=== PATIENT | female | born 1985 | race Caucasian/White ===

== ENCOUNTER → 2021-01-28 15:47 | Outpatient (CLI) | payer OTHER, SELFPAY ==
--- NOTE | 2021-01-28 15:49 | DI.ECHO.S_ITS ---
[place] [facility]---------+ [facility] +---------+ : : [address] : [address] : : : : [id number] : : : : Phone: [phone]+ Echocardiogram Report + + :Name: TOM CORMIER Study Date: 01/28/2021 Height: 60 in : :[facility] ReadingLocation: Weight: 145 lb : : Gender: Female BSA: 1.6 m2 : :: 1985 Age: 35 yrs BP: 125/80 mmHg: :Reason For Study: MITRAL VALVE DISORDERS : :Ordering Physician: JULIUS, : :KEYANA Performed By: Lucila Renner : :Referring: KEYANA HILLS : + + Interpretation Summary 1) Normal left ventricular thickness, size, wall motion, diastolic function, and systolic function (EF 60-65%). 2) Normal right ventricular size and function. 3) No significant valvular abnormalities. 4) Compared to the Echo done 06/30/2017, the small echogenic mobile structure is noted on the atrial side of the posterior mitral valve leaflet is not seen on this study. Procedure: A two-dimensional transthoracic echocardiogram with color flow and Doppler was performed. The study quality was technically adequate. Comparison is made with the echocardiogram of 06/30/2017. The patient was in sinus rhythm with heart rates between 78-93 bpm during the exam. Left Ventricle: The left ventricle is normal in size and wall thickness. The ejection fraction is estimated to be 60-65%. Left ventricular systolic function appears normal without focal wall motion abnormalities. Right Ventricle: The right ventricle is normal in size and function. Atria: The left atrial size is normal. Right atrial size is normal. There is no Doppler evidence for an interatrial shunt. Mitral Valve: The mitral valve is normal in structure and function. There is trace mitral regurgitation. Aortic Valve: The aortic valve is trileaflet. The aortic valve opens well. There is no aortic valve stenosis. No aortic regurgitation is present. Tricuspid Valve: The tricuspid valve is normal in structure and function. No tricuspid regurgitation. Pulmonary artery pressures cannot be estimated because of the lack of a measurable TR jet velocity but the IVC suggests a CVP of around 3 mmHg. Pulmonic Valve: The pulmonic valve leaflets are thin and pliable; valve motion is normal. There is no pulmonic valvular regurgitation. Great Vessels: The aortic root is normal size. The dimensions of the ascending aorta are normal. The IVC is of normal diameter and collapses greater than 50% with a sniff. This suggests a low right atrial pressure of 3 mm Hg. Pericardium/ Pleura There is no pericardial effusion. There is no pleural effusion. MMode/2D Measurements & Calculations LVIDd: 4.4 cm LVOT diam: 1.9 cm LVIDs: 2.9 cm Ao root diam: 2.5 cm FS: 35.1 % asc Aorta Diam: 2.5 cm IVSd: 0.41 cm Ao Arch Diam (Prox Trans): 2.0 cm LVPWd: 0.58 cm LV garrison. diameter/BSA (cm/m^2): 2.7 LV sys. diameter/BSA (cm/m^2): 1.8 LA A2 area: 15.3 cm2 RA long axis: 4.1 cm LA A4 area: 16.3 cm2 RA area: 12.0 cm2 LA length (vol): 4.9 cm RA vol: 29.8 ml LA vol: 43.5 ml RA : 18.3 ml/m2 LA vol index: 26.7 ml/m2 IVC diam: 0.99 cm RVD1 (basal): 3.3 cm TAPSE: 1.7 cm Doppler Measurements & Calculations Ao V2 max: 143.9 cm/sec LVOT Max Perry: 102.2 cm/sec Ao V2 mean: 100.3 cm/sec LV V1 max P.2 mmHg Ao max P.3 mmHg LV V1 VTI: 19.0 cm Ao mean P.5 mmHg JG(I,D): 2.0 cm2 Ao V2 VTI: 26.3 cm JG(V,D): 2.0 cm2 sev ratio: 0.72 JG indexed to BSA (cm^2/m^2): 1.3 MV E max perry: 99.7 cm/sec PA V2 max: 139.8 cm/sec MV A max perry: 55.4 cm/sec PA V2 mean: 93.9 cm/sec MV E/A: 1.8 PA mean P.9 mmHg Med Peak E' Perry: 11.3 cm/sec PA pr(Accel): 39.6 mmHg E/E' med: 8.8 Lat Peak E' Perry: 16.1 cm/sec E/E' lat: 6.2 E/e' average: 7.5 MV dec time: 0.18 sec SVLVOT): 53.7 ml Reading Physician:08:43 AM
== END ==
PROVIDERS: PCP Nurse Practitioner Family; Referring Provider Internal Medicine Cardiovascular Disease; Visit Provider Internal Medicine Cardiovascular Disease
DX: I34.8 Other nonrheumatic mitral valve disorders (principal)
CPT/HCPCS: 93306

== ENCOUNTER → 2025-03-01 13:39 | Outpatient (CLI) | payer OTHER, SELFPAY | PROVIDERS: PCP Family Medicine; Visit Provider Family Medicine | DX: N39.0 Urinary tract infection, site not specified (principal) | CPT/HCPCS: 87077; 87086; 87186 ==